=== PATIENT | male | born 1990 | race American Indian/Alaskan Native ===

== ENCOUNTER 2025-05-05 11:14 | Emergency (ER) | payer OTHER ==
[~2025-05-05] VITALS: Ht 185.4 cm; Wt 71.7 kg
[2025-05-05] MEDS ORDERED: GENVOYA TABLET1 EACH (11:21)
[2025-05-05 13:32] LABS: BASO % 0.2 % (0.1-1.2); EOS # 0.02 (0.04-0.54); EOS % 0.4 % (0.7-7.0); LYMPH # 1.27 (1.18-3.74); LYMPH % 25.1 % (19.3-53.1); MEAN PLATELET VOLUME 10.20 fl (9.4-12.4); MONO # 0.59 (0.24-0.82); MONO % 11.7 % (4.7-12.5); NEUT # 3.15 (1.56-6.13); NEUT % 62.4 % (34.0-71.1); RED CELL DISTRIBUTION WIDTH 12.1 % (11.6-14.4)
[2025-05-05 13:56] LABS: COVID-19 AG NEGATIVE (NEGATIVE)
[2025-05-05] MEDS ORDERED: GILTUSS COUGH-118 M1 PO (14:22)
[2025-05-05] MEDS ORDERED: AZITHROMYCIN500 MG PO (14:22)
[2025-05-05] MEDS ORDERED: ACETAMINOPHEN500 M1 PO (14:22)
== END 2025-05-05 14:48 | disposition home or self-care (01) ==
LOC: ER 11:14
PROVIDERS: Preventive Medicine Public Health & General Preventive Medicine
DX: J06.9 Acute upper respiratory infection, unspecified (principal); J00 Acute nasopharyngitis [common cold]; B20 Human immunodeficiency virus [HIV] disease; Z20.822 Contact with and (suspected) exposure to COVID-19; Z88.0 Allergy status to penicillin